=== PATIENT | male | born 1965 | race Caucasian/White ===

== ENCOUNTER 2019-10-12 17:36 | Emergency (ER) | payer MEDICAID, MEDICARE ==
[~2019-10-12] VITALS: Ht 185.4 cm; Wt 77.3 kg
[2019-10-12] MEDS ORDERED: HYDROcodone/acetaminophen 10/325mg tab PO ONE (17:55)
--- NOTE | 2019-10-12 18:10 | NUR ---
Pt refused [place] for pain until xray results back. KEE Mitchell notified.
[2019-10-12 19:44] VITALS: BP 110/70
== END 2019-10-12 19:48 | disposition home or self-care (01) ==
LOC: ER 17:36
DX: S43.102A Unspecified dislocation of left acromioclavicular joint, initial encounter (principal); S80.211A Abrasion, right knee, initial encounter; E11.9 Type 2 diabetes mellitus without complications; Z60.2 Problems related to living alone; V29.3XXA Motorcycle rider (driver) (passenger) injured in unspecified nontraffic accident, initial encounter; Y93.55 Activity, bike riding; Y92.828 Other wilderness area as the place of occurrence of the external cause; Y99.8 Other external cause status
CPT/HCPCS: 73030; 99284